=== PATIENT | male | born 2000 | race Caucasian/White ===

== ENCOUNTER 2025-09-02 13:08 | Emergency (ER) | payer OTHER, SELFPAY ==
[2025-09-02 13:08] VITALS: BP 144/93; PULSE 93; RESP 16; TEMP 36.5; O2SAT 98
[2025-09-02 13:21] VITALS: BP 144/93; PULSE 93; RESP 16; TEMP 36.5; O2SAT 98
[2025-09-02] MEDS: Fluorescein STRIPS 100/BOX 1 MG OP (13:32)
[2025-09-02] MEDS: Tetracaine 0.5% 4 ML BTL OP (13:32)
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
--- NOTE | 2025-09-02 13:46 | NUR.NOTE ---
Patient has appt with [facility] today @ [id number]. Nursing Note:
--- NOTE | 2025-09-02 14:02 | NUR.NOTE ---
Demographic sheet and provider note faxed to [facility]. Nursing Note:
== END 2025-09-02 14:09 ==
LOC: ER 13:48
PROVIDERS: Emergency Provider General Practice
DX: H20.9 Unspecified iridocyclitis (principal)
CPT/HCPCS: 99283 ×2